=== PATIENT | male | born 1945 | race Caucasian/White ===

== ENCOUNTER 2016-04-12 19:20 | Emergency (ER) | payer OTHER, MEDICARE ==
[~2016-04-12] VITALS: Ht 175.3 cm; Wt 122.5 kg
--- NOTE | 2016-04-12 19:29 | ED NEURO DEFICIT/STROKE ---
History of Present Illness General Chief Complaint: Neuro Symptoms/ Deficit Stated Complaint: NEURO CHANGES SINCE NOON Source: patient Exam Limitations: no limitations Vital Signs & Intake/Output Vital Signs & Intake/Output Vital Signs Date Time Temp Pulse Resp B/P Pulse O2 O2 Flow FiO2 Ox Delivery Rate 04/122 96.8 66 18 126/62 96 Room Air 04/12 1950 96 Room Air 04/12 1935 97.9 72 18 161/84 96 Room Air ED Intake and Output 04/13 0000 04/12 1200 Intake Total Output Total Balance Patient 270 lb Weight Allergies Coded Allergies: No Known Allergies (04/12/16) Reconcile Medications Amlodipine Besylate 10 MG TABLET 1 TAB PO DAILY HTN (Reported) Aspirin (Aspirin*) 81 MG TAB.CHEW 1 TAB PO DAILY HTN (Reported) Esomeprazole (Nexium) 40 MG CAPSULE.DR 1 CAP PO DAILY REFLUX (Reported) Gemfibrozil 600 MG TABLET 1 TAB PO BID DERMATITIS (Reported) Glimepiride 4 MG TABLET 1 TAB PO BID DM (Reported) Metoprolol Succinate 25 MG TAB 1 TAB PO BID HTN (Reported) Pen Needle, Diabetic (Bd Ultra-Fine Pen Needle) 32 GAUGE X 5/32" DIS.NEEDLE 10 UNIT SC DAILY DM (Reported) Rosuvastatin Calcium (Crestor) 40 MG TABLET 1 TAB PO QHS HIGH CHOLESTROL ( Reported) Valacyclovir HCl (Valtrex) 1,000 MG TABLET 1 TAB PO TID FRY'S PALSY Triage Nurses Notes Reviewed? yes Onset: Abrupt Duration: day(s): (1) Timing: single episode today Severity: mild New Weakness: right facial Altered Sensations: right facial Vision Problem? No Glaucoma? No Baseline: alert, oriented x 3 Associated Symptoms: UNABLE TO CLOSE RIGHT EYE HPI: This is a 71-year-old male with history of insulin-dependent diabetes, hypertension, previous CABG he presents the chief complaint of right facial droop. He states around noon he noticed that his right cheek had a pins and needle sensation. Progressively over the course of the day his right eyelid started to feel droopy. No headache or blurred vision. No confusion. No difficulty with speech or swallowing. No extremity weakness or ataxia. Today he went to an urgent care clinic and they sent him here for evaluation here no history of previous stroke or TIA. Denies any other associated symptoms. 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 Past History Medical History Any Pertinent Medical History? see below for history Cardiovascular: hypertension Endocrine: diabetes Surgical History Surgical History: non-contributory Family History Hx Contributory? No Review of Systems Review of Systems Constitutional: Denies: chills, fever. EENTM: Reports: no symptoms. Respiratory: Denies: cough, orthopnea. Cardiovascular: Denies: chest pain, palpitations. GI: Reports: no symptoms. Genitourinary: Reports: no symptoms. Musculoskeletal: Reports: no symptoms. Skin: Reports: no symptoms. Neurological/Psychological: Reports: numbness. Hematologic/Endocrine: Denies: bruising, bleeding, polyuria, polydipsia. Immunologic/Allergic: Denies: splenectomy. All Other Systems: Reviewed and Negative Physical Exam Physical Exam General Appearance: well developed/nourished, alert, awake, mild distress, obese Head: atraumatic, normal appearance, RIGHT FACIAL NUMBNESS Eyes: Bilateral: normal appearance, PERRL, EOMI. Ears, Nose, Throat: normal ENT inspection, moist mucous membrane, hearing grossly normal, pharynx normal Neck: normal inspection, supple, full range of motion Respiratory: normal breath sounds, chest non-tender, no respiratory distress Cardiovascular: regular rate/rhythm Peripheral Pulses: 2+ radial (R), 2+ radial (L) Gastrointestinal: normal bowel sounds, soft, non-tender Back: normal inspection, normal range of motion Extremities: normal range of motion Psychiatric: awake, alert, oriented x 3 Cranial Nerves: normal hearing, normal speech, PERRL Coordination/Gait: normal finger to nose, normal gait Motor/Sensory: no motor/sensory deficits, sensory deficit (RIGHT FACE) Skin: intact, normal color, warm/dry Core Measures CVA/TIA Diagnosis: No Severe Sepsis Present: No Septic Shock Present: No Progress Differential Diagnosis: Fry's Palsy, intracranial Hem., intracranial mass/tumor , migraine VANEGAS, seizure disorder, CVA Plan of Care: Orders Procedure Date/time Status PARTIAL THROMBOPLASTIN TIME 04/12 1939 Complete PROTHROMBIN TIME 04/12 1939 Complete LYME TITRE 04/12 1939 Active COMPREHENSIVE METABOLIC PANEL 04/12 1939 Complete CBC WITHOUT DIFFERENTIAL 04/12 1939 Complete EKG 04/12 1939 Active Laboratory Tests 04/12/16 2007: Anion Gap 14, Estimated GFR > 60, BUN/Creatinine Ratio 18.6, Glucose 343 H, Calcium 9.2, Total Bilirubin 0.8, AST 34, ALT 40, Alkaline Phosphatase 94, Total Protein 8.0, Albumin 4.4, Globulin 3.6, Albumin/Globulin Ratio 1.2, PT 10.8, INR 1.03, APTT 27, CBC w Diff NO MAN DIFF REQ, RBC 4.67 L, MCV 87.0, MCH 29.7, RDW 14.4, MPV 8.1, Gran % 61.0, Lymphocytes % 24.2, Monocytes % 12.1 H, Eosinophils % 2.3, Basophils % 0.4, Absolute Granulocytes 3.2, Absolute Lymphocytes 1.3, Absolute Monocytes 0.6, Absolute Eosinophils 0.1, Absolute Basophils 0, PUBS MCHC 34.1, Lyme Disease Antibody Pending CT scan is negative. Blood sugar is 287. 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 Secondary to history of insulin dependent diabetes and hyperglycemia I feel that it would be harmful to place the patient on steroids at this time. Valtrex prescribed in the pharmacy. I have asked him to use artificial tears to prevent corneal abrasions and to follow-up with primary care doctor in the office. He will call the ER in 4 days to find out about the results of his Lyme test. (TIAGO FLOYD,IVETT) Diagnostic Imaging: Viewed by Me: CT Scan. Discussed w/RAD: CT Scan. Radiology Impression: PATIENT: MIHAELA HUMPHRIES PRESENT AGE: 71 PATIENT ACCOUNT NO: [id number] : 43 LOCATION: [facility] ORDERING PHYSICIAN: IVETT ORDOÑEZ MD SERVICE DATE: 04/12/16 EXAM TYPE: CAT - CT HEAD WO IV CONTRAST EXAMINATION: CT HEAD WITHOUT CONTRAST CLINICAL INFORMATION: Facial weakness COMPARISON: None. TECHNIQUE: Contiguous axial imaging was performed from the skull base to vertex without intravenous administration of contrast. FINDINGS: No midline shift. There is no mass effect. No hemorrhage. Basilar cisterns appear patent. Posterior fossa is grossly within normal limits. No extra-axial collection. IMPRESSION: Negative acute noncontrast CT of the brain. DICTATED BY: SAIMA OHARA MD DATE/TIME DICTATED:04/12/162116 DOOR REPAIRER BUS:JUSTIN DATE/TIME TRANSCRIBED:04/12/162116 CONFIDENTIAL, DO NOT COPY WITHOUT APPROPRIATE AUTHORIZATION. <Electronically signed in Other Vendor System> SIGNED BY: SAIMA OHARA MD 04/12/162121 Initial ED EKG: NSR Departure Departure Time of Disposition: 2141 Disposition: HOME OR SELF CARE Condition: Stable Clinical Impression Primary Impression: Fry's palsy Referrals: LIBIA FLOYD,CARLIE DAN (PCP/Family) Additional Instructions: TAKE THE VALTREX DIRECTED AND USE THE ARTIFICIAL TEARS DISCUSSED. CALL [phone] IN 4 DAYS FOR RESULTS OF YOUR LYME TITER. FOLLOW UP WITH YOUR DOCTOR IN THE OFFICE. RETURN NEEDED. Departure Forms: Customer Survey General Discharge Information Prescriptions: Current Visit Scripts Valacyclovir HCl (Valtrex) 1 TAB PO TID #21 TAB
[2016-04-12 20:22] LABS: ABSOLUTE BASOPHIL COUNT 0 /CUMM (0.0-0.2); ABSOLUTE EOSINOPHIL COUNT 0.1 /CUMM (0.0-0.7); ABSOLUTE GRANULOCYTE CT 3.2 /CUMM (1.4-6.5); ABSOLUTE LYMPH COUNT 1.3 /CUMM (1.2-3.4); ABSOLUTE MONOCYTE COUNT 0.6 /CUMM (0.10-0.60); BASOPHIL % 0.4 % (0.0-2.0); EOSINOPHIL % 2.3 % (0-5); HEMATOCRIT 40.6 % (42-52); MEAN CORPUSCULAR HGB 29.7 PG (27.0-31.0); MEAN CORPUSCULAR HGB CONC 34.1 G/DL (33.0-37.0); MEAN PLATELET VOLUME 8.1 FL (7.4-10.4); PLATELET COUNT 148 /CUMM (130-400); RBC DISTRIBUTION WIDTH 14.4 % (11.5-14.5); RED BLOOD CELL CT 4.67 /CUMM (4.70-6.10); WHITE BLOOD CELL COUNT 5.3 /CUMM (4.8-10.8)
[2016-04-12] MEDS ORDERED: CRESTOR40 M2 PO (20:28)
[2016-04-12] MEDS ORDERED: METOPROLOL SUCC25 M1 PO (20:29)
[2016-04-12] MEDS ORDERED: NEXIUM40 M1 PO (20:29)
[2016-04-12] MEDS ORDERED: BD ULTRA-FINE1 EAC3 SC (20:30)
[2016-04-12 20:32] LABS: PT 10.8 SEC (9.4-12.5); PTT 27 SEC (25-37)
[2016-04-12] MEDS ORDERED: GEMFIBROZIL600 M1 PO (20:32)
[2016-04-12] MEDS ORDERED: AMLODIPINE BESY10 M1 PO (20:32)
[2016-04-12] MEDS ORDERED: GLIMEPIRIDE4 M1 PO (20:32)
[2016-04-12] MEDS ORDERED: ASPIRIN81 M4 PO (20:33)
[2016-04-12 21:22] VITALS: BP 126/62
--- NOTE | 2016-04-12 21:22 | CT SCAN REPORT ---
EXAMINATION: CT HEAD WITHOUT CONTRAST CLINICAL INFORMATION: Facial weakness COMPARISON: None. TECHNIQUE: Contiguous axial imaging was performed from the skull base to vertex without intravenous administration of contrast. FINDINGS: No midline shift. There is no mass effect. No hemorrhage. Basilar cisterns appear patent. Posterior fossa is grossly within normal limits. No extra-axial collection. IMPRESSION: Negative acute noncontrast CT of the brain.
[2016-04-12] MEDS ORDERED: VALTREX1000 MG PO (21:44)
== END 2016-04-12 21:59 ==
LOC: ERH 19:20
PROVIDERS: Emergency Medicine
DX: G51.0 Bell's palsy (principal); I10 Essential (primary) hypertension; E11.9 Type 2 diabetes mellitus without complications; Z79.4 Long term (current) use of insulin; Z95.1 Presence of aortocoronary bypass graft
CPT/HCPCS: 86618; 93005; 93010